=== PATIENT | female | born 1965 | race Caucasian/White ===

== ENCOUNTER → 2016-10-20 | Outpatient (CLI) | payer OTHER | END | disposition home or self-care (01) | LOC: CFH 09:30 | PROVIDERS: ATTEND Obstetrics & Gynecology Gynecology | DX: Z12.31 Encounter for screening mammogram for malignant neoplasm of breast (principal) | CPT/HCPCS: G0202 ==

== ENCOUNTER → 2017-04-12 | Outpatient (CLI) | payer OTHER | LOC: CFH 08:05 | PROVIDERS: ATTEND Obstetrics & Gynecology Gynecology | DX: Z13.820 Encounter for screening for osteoporosis (principal) | CPT/HCPCS: 77080 ==

== ENCOUNTER → 2018-05-30 | Outpatient (CLI) | payer OTHER | END | disposition home or self-care (01) | LOC: CFH 08:01 | PROVIDERS: ATTEND Obstetrics & Gynecology Gynecology | DX: Z12.31 Encounter for screening mammogram for malignant neoplasm of breast (principal) | CPT/HCPCS: 77063; 77067 ==

== ENCOUNTER 2019-01-18 12:50 | Day surgery (SDC) | payer OTHER ==
[~2019-01-18] VITALS: Ht 162.6 cm; Wt 77.9 kg
[~2019-01-18 12:50] MED LIST: Fish Oil PO; IBUP200C8 PO; PROG100C16 PO; estradiol patch TD
[2019-01-18] MEDS ORDERED: LACTATED RINGERS 1,000 ML IV ONE (13:10)
[2019-01-18] MEDS ORDERED: ACET325T14 PO (13:15)
[2019-01-18] MEDS ORDERED: MIDAZOLAM 1 MG/ML, 2ML ONE (14:09)
[2019-01-18] MEDS ORDERED: FENTANYL PF 250 MCG/5ML ONE (14:09)
[2019-01-18] MEDS ORDERED: EPINEPHRINE 1 MG/ML, 1ML ONE (14:54)
[2019-01-18] MEDS ORDERED: BUPIVACAINE/PF 0.5% ONE (14:54)
[2019-01-18] MEDS ORDERED: BACITRACIN 50,000 UNIT ONE (14:54)
[2019-01-18] MEDS ORDERED: PROPOFOL 50 ML ONE (15:02)
[2019-01-18] MEDS ORDERED: PROPOFOL 10 MG/ML, 20ML ONE (15:07)
[2019-01-18] MEDS ORDERED: DEXAMETHASONE 4 MG/ML, 1ML ONE ×2 (15:26)
[2019-01-18] MEDS ORDERED: CEFAZOLIN 1,000 MG ONE (15:27)
[2019-01-18] MEDS ORDERED: PROMETHAZINE 25 MG/ML, 1ML IV PRN (15:30)
[2019-01-18] MEDS ORDERED: ONDANSETRON 2MG/ML, 2ML IV PRN (15:30)
[2019-01-18] MEDS ORDERED: ACETAMINOPHEN 325 MG TABLET PO PRN (15:30)
[2019-01-18] MEDS ORDERED: HYDROmorphone 2 MG/ML, 1ML IVPush PRN (15:30)
[2019-01-18] MEDS ORDERED: MEPERIDINE/PF 25MG/ML,1ML IVPush PRN (15:30)
[2019-01-18] MEDS ORDERED: FENTANYL PF 100 MCG/2ML IV PRN (15:30)
[2019-01-18] MEDS ORDERED: hydrALAzine 20 MG/ML, 1ML IV PRN (15:30)
[2019-01-18] MEDS ORDERED: LABETALOL 5MG/ML, 20ML IV PRN (15:30)
[2019-01-18] MEDS ORDERED: OXYcodone 5 MG/5 ML ORAL.SOL UDC PO PRN (15:30)
[2019-01-18] MEDS ORDERED: KETOROLAC 30 MG/1 ML ONE (15:35)
[2019-01-18] MEDS ORDERED: ONDANSETRON 2MG/ML, 2ML ONE (15:36)
== END 2019-01-18 18:00 | disposition home or self-care (01) ==
LOC: OR 12:50
PROVIDERS: ATTEND Orthopaedic Surgery
DX: G56.03 Carpal tunnel syndrome, bilateral upper limbs (principal); Z79.1 Long term (current) use of non-steroidal anti-inflammatories (NSAID); Z79.899 Other long term (current) drug therapy; Z82.49 Family history of ischemic heart disease and other diseases of the circulatory system
CPT/HCPCS: 29848; J0171; J0690; J1100; J1885; J2250; J2405; J2704; J3010; J7120

== ENCOUNTER → 2019-11-14 | Outpatient (CLI) | payer OTHER ==
[~2019-11-14] MED LIST changes: +ACET325T14 PO
== END | disposition home or self-care (01) ==
LOC: CFH 07:09
PROVIDERS: ATTEND Obstetrics & Gynecology Gynecology
DX: Z12.31 Encounter for screening mammogram for malignant neoplasm of breast (principal)
CPT/HCPCS: 77063; 77067